=== PATIENT | male | born 1975 | race American Indian/Alaskan Native ===

== ENCOUNTER 2021-07-28 16:58 | Emergency (ER) | payer BC ==
[2021-07-28] MEDS ORDERED: KETOROLAC 30 MG/1 ML INJ IV ONE ×2 (17:22→21:00)
[2021-07-28] MEDS ORDERED: diphenhydrAMINE 50 MG/ML VIAL IV ONE ×2 (17:23→21:00)
[2021-07-28] MEDS ORDERED: PROCHLORPERAZINE EDISYLATE 10 MG/2 ML VIAL IV ONE ×2 (17:23→21:00)
--- NOTE | 2021-07-28 17:23 | Consultation ---
Assessment and Plan [facility] Consult Note # Demographics Consult Type: Acute Stroke Level 1 (0-4.5 hrs) Patient Location: Emergency Room First Name: Preston Last Name: Lonnie Date of : 1975 Age: 46 Gender: Male Facility: [facility] Time of Initial Page ( Time): 07/28/2021, 16:38 Time of Return Call ( Time): 07/28/2021, 16:40 # HPI History: 46M 15:06 right side weakness no droop or slurring. headache all day. When he got home from work he got a headache, was going to take something, right arm became numb and heavy. 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 # Scores Time of exam and NIHSS ( Time): 07/28/2021, 17:15 Level of Consciousness 1a: [0] = Alert; keenly responsive LOC Questions 1b: [0] = Answers both questions correctly LOC Commands 1c: [0] = Performs both tasks correctly Best Gaze 2: [0] = Normal Visual 3: [0] = No visual loss Facial Palsy 4: [0] = Normal symmetrical movements Motor Arm Left 5a: [0] = No drift Motor Arm Right 5b: [0] = No drift Motor Leg Left 6a: [0] = No drift Motor Leg Right 6b: [0] = No drift Limb Ataxia 7: [0] = Absent Sensory 8: [0] = Normal Best Language 9: [0] = No aphasia Dysarthria 10: [0] = Normal Extinction and Inattention 11: [0] = No abnormality NIHSS Total: 0 VAN Screening: Negative # Exam Additional Neurologic Exam: gait is possible without assistance. # Assessment Impression: Ischemic Stroke (Acute) versus complex migraine. Current deficit is estimated to be non-disabling when best effort is provided. # Plan Thrombolytic/Intervention: NOT IV Thrombolysis or IA Intervention candidate Thrombolytic Exclusion (< 3 hour window): non-disabling deficit Intraarterial Exclusion: non-disabling Imaging: (urgency: STAT): CT Angiogram Head and CT Angiogram Neck Other: If CTA negative and symptoms resolved may dispo; otherwise would admit for MRI and symptom control If patient has any neurological deterioration please call me back immediately I have discussed my recommendations with the referring provider Disposition: observation # Logistics Telemedicine: Interactive 2 way audio and visual telecommunication technology was utilized during this visit
--- NOTE | 2021-07-28 17:37 | Cat Scan Report ---
Normal CT HEAD WITHOUT CONTRAST INDICATION / CLINICAL INFORMATION: CODE STROKE CALL [phone]. Facial droop and right-sided weakness. TECHNIQUE: All CT scans at this location are performed using CT dose reduction for ALARA by means of automated e xposure control. COMPARISON: None available. FINDINGS: HEMORRHAGE: No evidence of intracranial hemorrhage or extra-axial fluid collection. EXTRA-AXIAL SPACES: Cortical sulci, sylvian fissures and basilar cisterns have an unremarkable appear ance. VENTRICULAR SYSTEM: The third and lateral ventricles are of normal size and configuration. CEREBRAL PARENCHYMA: No areas of abnormal brain parenchymal attenuation are identified. There is no i ndication of recent infarction. MIDLINE SHIFT OR HERNIATION: There is no mass effect. CEREBELLUM / BRAINSTEM: Brainstem and cerebellum have an unremarkable appearance. MIDLINE STRUCTURES:No abnormalities of the pituitary gland or pineal region are identified. INTRACRANIAL VESSELS:No abnormalities are identified on this noncontrast head CT. ORBITS: visualized portions of the orbits have an unremarkable appearance. SOFT TISSUES of HEAD: No significant abnormality. CALVARIUM: Evaluation of bone windows reveals no abnormalities. PARANASAL SINUSES / MASTOID AIR CELLS: Visualized portions of the paranasal sinuses are free from inf lammatory mucosal disease. Mastoid air cells are normally pneumatized. ADDITIONAL FINDINGS: None. IMPRESSION: 1. No acute intracranial abnormality. 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 Perez of the [facility] [place] emergency department. Signer Name: David Young MD Signed: 07/28/2021 5:32 PM Workstation Name: [id number]
--- NOTE | 2021-07-28 17:40 | Emergency Department Report ---
ED Neuro Deficit HPI - General Chief Complaint: Neuro Symptoms/Deficit Stated Complaint: Stroke Time Seen by Provider: 07/28/21 17:07 Source: patient Mode of arrival: Stretcher Limitations: No Limitations - History of Present Illness Initial Comments: Patient is 46 years old male with no significant past medical history. Patient brought to the emergency room via EMS from home as a code stroke. Patient stated the symptoms started around 3:05 PM today with right upper extremity heaviness and numbness. Patient stated that he had headache all day today. He stated that he was working last night. He denied any speech problem. No visual changes. He denies any other weakness. Upon arrival to the ER stroke protocol immediately initiated and patient transferred to CT for stat CT brain without contrast. Stroke teleneurology consulted and patient examined by Dr. Ye. Dr. Ye stated that patient symptoms most likely related to complex migraine however he advised to order a CTA neck and CTA brain. He advised to give Toradol 30 mg IV, Compazine 10 mg IV and Benadryl 25 mg IV. -: hour(s) Location: right arm, right leg Presenting Symptoms: Present: Weak/Paralyzed One Side, Facial Droop/Numbness History of same: No Place: home Quality: weak Associated Symptoms: denies other symptoms - Related Data Home Medications: Home Medications Medication Instructions Recorded Confirmed Last Taken Dexilant 50 mg PO DAILY 07/28/21 07/28/21 07/27/21 09:00 Allergies/Adverse Reactions: Allergies Allergy/AdvReac Type Severity Reaction Status Date / Time No Known Allergies Allergy Unverified 07/28/21 18:02 ED Review of Systems ROS: Stated complaint: Stroke Other details as noted in HPI Comment: All other systems reviewed and negative Constitutional: denies: chills, fever Respiratory: denies: cough, shortness of breath, SOB with exertion, SOB at rest Cardiovascular: denies: chest pain, palpitations Gastrointestinal: denies: abdominal pain, nausea, vomiting Musculoskeletal: denies: back pain Neurological: headache, weakness, numbness. denies: paresthesias, confusion, abnormal gait ED Past Medical Hx - Medications Home Medications: Home Medications Medication Instructions Recorded Confirmed Last Taken Type Dexilant 50 mg PO DAILY 07/28/21 07/28/21 07/27/21 09:00 History ED Neuro Physical Exam - General Limitations: No Limitations General appearance: alert, in no apparent distress Suspected Stroke: Yes - Head Head exam: Present: atraumatic, normocephalic, normal inspection - Eye Eye exam: Present: normal appearance - ENT ENT exam: Present: normal exam, normal orophraynx, mucous membranes moist - Neck Neck exam: Present: normal inspection, full ROM. Absent: tenderness, meningismus - Respiratory Respiratory exam: Present: normal lung sounds bilaterally - Cardiovascular Cardiovascular Exam: Present: regular rate, normal rhythm, normal heart sounds - GI/Abdominal GI/Abdominal exam: Present: soft, normal bowel sounds. Absent: distended, tenderness, guarding, rebound, rigid, organomegaly, mass, bruit, pulsatile mass, hernia - Extremities Exam Extremities exam: Present: normal inspection, full ROM, normal capillary refill. Absent: tenderness - Back Exam Back exam: Present: normal inspection, full ROM. Absent: CVA tenderness (R), CVA tenderness (L) - Neurological Exam Neurological exam: Present: alert, oriented X3, CN II-XII intact, normal gait, reflexes normal. Absent: motor sensory deficit - NIHSS Assessment Interval: Baseline 1a. Level of Consciousness: alert/keenly responsive 1b. LOC Questions: answers both correctly 1c. LOC Commands: performs tasks correctly 2. Best Gaze: normal 3. Visual: no visual loss 4. Facial Palsy: normal symmetrical movement 5b. Motor Arm Right: no drift 5a. Motor Arm Left: no drift 6a. Motor Leg Left: no drift 6b. Motor Leg Right: no drift 7. Limb Ataxia: absent 8. Sensory: normal 9. Best Language: no aphasia 10. Dysarthria: normal 11. Extinction/Inattention: no abnormality Total Score: 0 Stroke Severity: No Stroke Symptoms - Psychiatric Psychiatric exam: Present: normal mood - Skin Skin exam: Present: warm, intact, normal color ED Course Vital Signs 07/28/21 07/28/21 17:52 20:00 Temperature 98.8 F Pulse Rate 71 Respiratory 15 Rate Blood Pressure 122/76 [Left] O2 Sat by Pulse 100 98 Oximetry - Lab Data Result diagrams: 07/28/21 18:12 07/28/21 18:12 Lab Results 07/28/21 07/28/21 07/28/21 Range/Units 18:12 18:12 18:12 WBC 5.3 (4.5-11.0) K/mm3 RBC 5.36 H (3.65-5.03) M/mm3 Hgb 12.6 (11.8-15.2) gm/dl Hct 40.0 (35.5-45.6) % MCV 75 L (84-94) fl MCH 24 L (28-32) pg MCHC 32 (32-34) % RDW 14.6 (13.2-15.2) % Plt Count 276 (140-440) K/mm3 Lymph % (Auto) 25.2 (13.4-35.0) % [place] % (Auto) 9.0 H (0.0-7.3) % Eos % (Auto) 0.5 (0.0-4.3) % Baso % (Auto) 0.5 (0.0-1.8) % Lymph # (Auto) 1.3 (1.2-5.4) K/mm3 [place] # (Auto) 0.5 (0.0-0.8) K/mm3 Eos # (Auto) 0.0 (0.0-0.4) K/mm3 Baso # (Auto) 0.0 (0.0-0.1) K/mm3 Seg Neutrophils % 64.8 (40.0-70.0) % Seg Neutrophils # 3.4 (1.8-7.7) K/mm3 PT 12.6 (12.2-14.9) Sec. INR 0.85 L (0.87-1.13) APTT 32.6 (24.2-36.6) Sec. Thrombin Time 16.5 (15.1-19.6) Sec. Sodium 136 L (137-145) mmol/L Potassium 4.2 (3.6-5.0) mmol/L Chloride 101.0 (98-107) mmol/L Carbon Dioxide 24 (22-30) mmol/L Anion Gap 15 mmol/L BUN 10 (9-20) mg/dL Creatinine 1.0 (0.8-1.3) mg/dL Estimated GFR > 60 ml/min BUN/Creatinine Ratio 10 % Glucose 118 H (75-100) mg/dL Calcium 8.7 (8.4-10.2) mg/dL Total Bilirubin (0.1-1.2) mg/dL Direct Bilirubin (0-0.2) mg/dL Indirect Bilirubin mg/dL AST (5-40) units/L ALT (7-56) units/L Alkaline Phosphatase (35-129) units/L Total Creatine Kinase 204 H (55-170) units/L CK-MB (CK-2) 2.2 (0.0-4.0) ng/mL CK-MB (CK-2) Rel Index 1.0 (0-4) Troponin T < 0.010 (0.00-0.029) ng/mL Total Protein (6.3-8.2) g/dL Albumin (3.9-5) g/dL Albumin/Globulin Ratio % 07/28/21 Range/Units 18:12 WBC (4.5-11.0) K/mm3 RBC (3.65-5.03) M/mm3 Hgb (11.8-15.2) gm/dl Hct (35.5-45.6) % MCV (84-94) fl MCH (28-32) pg MCHC (32-34) % RDW (13.2-15.2) % Plt Count (140-440) K/mm3 Lymph % (Auto) (13.4-35.0) % [place] % (Auto) (0.0-7.3) % Eos % (Auto) (0.0-4.3) % Baso % (Auto) (0.0-1.8) % Lymph # (Auto) (1.2-5.4) K/mm3 [place] # (Auto) (0.0-0.8) K/mm3 Eos # (Auto) (0.0-0.4) K/mm3 Baso # (Auto) (0.0-0.1) K/mm3 Seg Neutrophils % (40.0-70.0) % Seg Neutrophils # (1.8-7.7) K/mm3 PT (12.2-14.9) Sec. INR (0.87-1.13) APTT (24.2-36.6) Sec. Thrombin Time (15.1-19.6) Sec. Sodium (137-145) mmol/L Potassium (3.6-5.0) mmol/L Chloride (98-107) mmol/L Carbon Dioxide (22-30) mmol/L Anion Gap mmol/L BUN (9-20) mg/dL Creatinine (0.8-1.3) mg/dL Estimated GFR ml/min BUN/Creatinine Ratio % Glucose (75-100) mg/dL Calcium (8.4-10.2) mg/dL Total Bilirubin 0.30 (0.1-1.2) mg/dL Direct Bilirubin < 0.2 (0-0.2) mg/dL Indirect Bilirubin 0.1 mg/dL AST 17 (5-40) units/L ALT 6 L (7-56) units/L Alkaline Phosphatase 55 (35-129) units/L Total Creatine Kinase (55-170) units/L CK-MB (CK-2) (0.0-4.0) ng/mL CK-MB (CK-2) Rel Index (0-4) Troponin T (0.00-0.029) ng/mL Total Protein 6.8 (6.3-8.2) g/dL Albumin 4.5 (3.9-5) g/dL Albumin/Globulin Ratio 2.0 % - EKG Data -: EKG Interpreted by Me EKG shows normal: sinus rhythm Rate: normal Interpretation: no acute changes - Radiology Data Radiology results: report reviewed - Medical Decision Making Patient is 46 years old male with no significant past medical history. Patient brought to the emergency room via EMS from home as a code stroke. Patient stated the symptoms started around 3:05 PM today with right upper extremity heaviness and numbness. Patient stated that he had headache all day today. He stated that he was working last night. He denied any speech problem. No visual changes. He denies any other weakness. Upon arrival to the ER stroke protocol immediately initiated and patient transferred to CT for stat CT brain without contrast. Stroke teleneurology consulted and patient examined by Dr. Ye. Dr. Ye stated that patient symptoms most likely related to complex migraine however he advised to order a CTA neck and CTA brain. He advised to give Toradol 30 mg IV, Compazine 10 mg IV and Benadryl [address] brain, CTA brain and CTA neck is negative for acute finding. Patient received the above-mentioned combination of medication for headaches. Patient examined by me multiple times during his ER stay. Patient stated that his symptoms completely resolved and he is ready to go home. I believe this is most likely complex migraine as described by the neurologist however patient strongly advised to follow-up with his primary care physician for further management and advised to return to the ER if he develop any new symptoms or similar symptoms. Critical Care Time: Yes Critical care time in (mins) excluding proc time.: 35 Critical care attestation.: If time is entered above; I have spent that time in minutes in the direct care of this critically ill patient, excluding procedure time. ED Disposition Clinical Impression: Acute headache, Weakness Disposition: 01 HOME / SELF CARE / HOMELESS Is pt being admited?: No Condition: Stable Instructions: Migraine Headache, [id number], Weakness Referrals: PRIMARY CARE, [Primary Care Provider] - 3-5 Days [facility] [Provider Group] - 3-5 Days
--- NOTE | 2021-07-28 18:08 | Cat Scan Report ---
CTA neck without and with intravenous contrast material CLINICAL HISTORY: stroke TECHNIQUE: Following acquisition of a timing bolus 0.625 mm thick contiguous axial scans were obtained from aort ic arch to the skull base during rapid bolus intravenous contrast infusion. In addition to evaluation of axial source images multiplanar reconstructions were produced and reviewed for this report. 3 ricardo ne MIP reconstructions were produced and reviewed. Contrast dose report: Omnipaque 350: 100 ml, administered intravenously All CT examinations performed at this facility utilize modulated dose reduction, iterative reconstruc tion or weight-based dosing, as appropriate, to obtain a radiation dose which is as low as can reason ably be achieved. FINDINGS: Thoracic aorta:No abnormalities are identified along the course of the thoracic aorta..The origins of the great vessels have an unremarkable appearance. Brachiocephalic artery, left common carotid arter y origin and left subclavian artery all have an unremarkable appearance. Right carotid artery:No abnormalities are seen along the course of the RCCA, at the right carotid bif urcation or along the cervical portions of the RAQUEL. Left carotid artery: No abnormalities are noted along the course of the left common carotid artery, a t the left carotid bifurcation or along the course of the cervical segments of the LICA. Posterior circulation:The vertebral arteries have an unremarkable appearance. Both vertebral arteries contribute to the basilar artery origin. The basilar artery has an unremarkable appearance. The degree of stenosis, if any, is determined utilizing NASCET like criteria. In this case there is no indication of hemodynamically significant stenosis at the carotid bifurcations or elsewhere. Evaluation of the nonvascular soft tissue structures reveal no abnormality. There is no indication of cervical lymphadenopathy. No abnormalities are seen along the course of the airway. Visualized porti ons of the parotid glands and the submandibular salivary glands have a normal appearance. Thyroid gla nd has a normal appearance. Evaluation of the lung apices reveals no evidence of lung nodule or infil trate. Evaluation of the cervical spine revealed no significant abnormalities. IMPRESSION: 1. No indication of hemodynamically significant stenosis at the carotid bifurcations or elsewhere. 2. Normal CTA neck. Signer Name: David Young MD Signed: 07/28/2021 6:04 PM Workstation Name: [id number]
--- NOTE | 2021-07-28 18:13 | Cat Scan Report ---
CTA head with intravenous contrast CLINICAL HISTORY: stroke right-sided weakness TECHNIQUE: 0.625 mm thick contiguous axial scans were obtained from the skull base to the skull vertex during r apid bolus administration of intravenous contrast material. Multiplanar reconstructions were produced in the coronal and sagittal planes. In addition 3 plane MIP instructions were produced and reviewed for this report. The axial source images and reconstructed images were reviewed for this report. CONTRAST DOSE REPORT: Omnipaque 350: 100 ml administered intravenously. All CT scans at this location are performed using CT dose reduction for ALARA by means of automated e xposure control. FINDINGS: Internal carotid arteries:Miky, cavernous, opthalmic, clinoid and supraclinoid segments of the ICAs have an unremarkable appearance. Middle cerebral arteries:Normal and symmetrical M1 segments of the middle cerebral arteries are demon strated. No abnormalities are seen on evaluation of the insular or opercular branches. Anterior cerebral arteries:Bilaterally symmetrical A1 segments are demonstrated. No abnormalities are seen along the course of the A2 segments or their visualized pericallosal branches. Vertebral arteries:Bilaterally symmetrical vertebral arteries are demonstrated. Both vertebral arteri es contribute to the basilar artery origin. Basilar artery:Basilar artery has an unremarkable appearance. Posterior cerebral arteries:Bilaterally symmetrical posterior cerebral arteries are identified. [place] of [place]:Not intact. see above. Dural sinuses: Dural venous sinuses are well demonstrated on this exam. 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 There is no evidence of dural sinus thrombosis. IMPRESSION: 1. No indication of intercranial stenosis or large vessel occlusion. Signer Name: David Young MD Signed: 07/28/2021 6:08 PM Workstation Name: [id number]
[2021-07-28 18:26] LABS: Basophils % (Auto) 0.5 % (0.0-1.8); Eosinophils % (Auto) 0.5 % (0.0-4.3); Hemoglobin 12.6 gm/dl (11.8-15.2); Lymphocytes # (Auto) 1.3 K/mm3 (1.2-5.4); Lymphocytes % (Auto) 25.2 % (13.4-35.0); Mean Corpuscular HGB Conc 32 % (32-34); Mean Corpuscular Volume 75 fl (84-94); Monocytes # (Auto) 0.5 K/mm3 (0.0-0.8); Platelet Count 276 K/mm3 (140-440); Red Blood Count 5.36 M/mm3 (3.65-5.03); Red Cell Distribution Width 14.6 % (13.2-15.2)
[2021-07-28 18:36] LABS: INR 0.85 (0.87-1.13); Partial Thromboplastin Time 32.6 Sec. (24.2-36.6); Thrombin Time 16.5 Sec. (15.1-19.6)
[2021-07-28 18:45] LABS: Alanine Aminotransferase 6 units/L (7-56); Albumin 4.5 g/dL (3.9-5)
[2021-07-28 18:46] LABS: Bilirubin,Direct < 0.2 mg/dL (0-0.2)
[2021-07-28 18:47] LABS: Creatine Kinase MB 2.2 ng/mL (0.0-4.0)
[2021-07-28 18:48] LABS: BUN/Creatinine Ratio 10; Blood Urea Nitrogen 10 mg/dL (9-20); Calcium 8.7 mg/dL (8.4-10.2); Hemolysis Index 9
[2021-07-28] MEDS ORDERED: ONDANSETRON 4 MG/2 ML INJ ONE (20:38)
[2021-07-28] MEDS ORDERED: SODIUM CHLORIDE 0.9% 1000 ML 1,000 ML ONE (20:38)
[2021-07-28 21:26] VITALS: BP 122/76
== END 2021-07-28 21:30 | disposition home or self-care (01) ==
LOC: ED 16:58 → EDBD 16:58 → ED 21:30
DX: R51.9 Headache, unspecified (principal); R53.1 Weakness
CPT/HCPCS: 36415; 70450; 70496; 70498; 80048; 80076; 82550; 82553; 84484; 85025; 85610; 85670; 85730; 96374; 96375; 99284; J0780; J1200; J1885; J2405; J7030; Q9967; 99291; Q0162